=== PATIENT | male | born 1950 | race Caucasian/White ===

== ENCOUNTER 2017-01-20 18:15 | Inpatient (IN) | payer OTHER ==
--- NOTE | ~2017-01-20 | DS ---
Unit #: [id number] #: [id number] Patient: OC GENAO [id number] [address] [place], [place] [address] [id number] I MR#: [id number] NAME: OC GENAO ROOM: 223 Age: 66 Sex: M Admission Date: 01/20/2017 : 1950 Discharge Date: 01/23/2017 Attending Physician: Miles Mckeon M.D. Primary Care Physician: Abdifatah Garibay M.D. DISCHARGE SUMMARY CONSULTANTS None. ADMITTING DIAGNOSIS Acute diverticulitis with abscess. DISCHARGE DIAGNOSES Acute diverticulitis with abscess. BRIEF HOSPITAL COURSE This is a 66-year-old gentleman who was admitted with abdominal pain. He had a CT scan, which showed diverticulitis with two small abscesses. He rapidly improved once started on IV antibiotics and really by hospital day #1 was asymptomatic. He was advanced to a solid food and initial plan was to repeat his CAT scan on hospital day #2; however, when I came by to see him the following morning, his white count had come down close to normal and he was completely asymptomatic and tolerating a regular diet. I made the decision to let the patient go home, which he was in full agreement with. I specifically instructed him if he had any return of symptoms to notify us and that he may need to be readmitted but he seemed to be doing well on oral antibiotics at the time. DISPOSITION Discharge to home. He is to followup with us for a colonoscopy that I will have my office schedule for him in two to three weeks. He was given a script for Levaquin and Flagyl and told to call us specifically he has any return of abdominal pain. Dictated by... Kemar King III, M.D. VCL/london TD: 01/24/2017 06:42 JOB #: [id number] Unit #: [id number] #: [id number] Patient: OC GENAO DISCHARGE SUMMARY Page 1 of 1 X Kemar King III, MD X DISCHARGE SUMMARY
--- NOTE | ~2017-01-20 | CT2 ---
[facility] A Service of [facility] RADIOLOGY TEXT RESULTS PATIENT: OC GENAO LOCATION: [facility] [address]-54 : 51 UNIT #: [id number] AGE: [address]: Miles Mckeon MD SEX: M ORDER DR: [id number] [facility] [address]. [place], [place] [address] [id number] MR#: [id number] Acc #: [id number] NAME: OC GENAO. : 1950 SEX: M STUDY DATE/TIME: 01/20/2017 22:50 UNIT: [facility] ROOM: 28004 STUDY DESCRIPTION: CT Abd and Pelv W Cont Attending Physician: Miles Mckeon M.D. Ordering Physician: Avel Andrade M.D. Primary Care Physician: Abdifatah Garibay M.D. MEDICAL IMAGING REPORT This report is preliminary unless electronic signature is present EXAM CT abdomen and pelvis INDICATIONS Generalized abdominal pain for 1.[address]. [address] of the abdomen and pelvis with p.o. and IV contrast (100 mL Isovue-370 IV contrast). Coronal and sagittal reconstructions were obtained. This CT exam was performed with one or more of the following radiation dose reduction techniques: Automatic exposure control, adjustment of mA and/or kV according to patient size, and iterative reconstruction. COMPARISON CT abdomen and pelvis dated 05/31/2010. FINDINGS ABDOMEN: The solid abdominal organs enhance normally. Gallbladder is surgically absent. No intrahepatic or extrahepatic biliary dilatation. There is a small, 4 mm nonobstructing calculus in the inferior left kidney. There is a small cyst in the mid-right kidney. No small bowel obstruction. The appendix is normal. There is left-sided colonic diverticulosis. There is extensive colonic diverticulitis in the sigmoid colon. There are 2 phlegmonous collections/abscesses. A collection in the sigmoid mesentery measures 4.9 x 2.3 x 3.7 cm. There is a collection in the deep pelvis measuring 2.7 x 3.6 x 3.0 cm. The collection in the deep pelvis abuts the seminal vesicles. There is some inflammatory stranding extending onto the posterior wall of the bladder. No evidence of a direct communication/fistula. No acute osseous abnormalities. There is bilateral L5 pars defects resulting in grade I anterolisthesis of L5 on S1. [facility] A Service of [facility] RADIOLOGY TEXT RESULTS PATIENT: OC GENAO LOCATION: [facility] [address]-76 : 51 UNIT #: [id number] AGE: [address]: Miles Mckeon MD SEX: M ORDER DR: IMPRESSION 1. Acute sigmoid colon diverticulitis. 2. Extensive inflammation into the sigmoid mesentery and deep pelvis, including 2 separate pelvic abscesses. These collections both appear too small for percutaneous drainage. 3. Inflammation along the posterior wall of the bladder, however no discrete fistulous tract is identified. Dictated by... Juanjose Fields M.D. THIS IS AN ELECTRONICALLY VERIFIED REPORT Juanjose Fields M.D. at 01/21/2017 3:24 AM RPC/vera TD: 01/21/2017 02:50 JOB #: [id number] MEDICAL IMAGING REPORT Page 1 of 1 COPY
[~2017-01-20 18:15] MED LIST: ADVAIR 250-501 EAC1 INH; ALBUTEROL 0.5ML INH; ALBUTEROL17 GM INH; ASPIRIN81 M1 PO; CHANTIX1 MG BU; CLARITIN10 MG PO; DIAZEPAM2 MG PO; HYDROCODON-ACE1 EAC7 PO; KEFLEX500 M1 PO; LEVAQUIN PO; LORTAB 10-5001 EACH PO; LORTAB 5-325 M1 EACH PO; LORTAB 7.5-5001 TAB; LORTAB 7.5-5001 TAB PO; ONE DAILY MULTI1 TA3 PO; PREDNISONE10 MG PO; PROAIR HFA8.5 GM INH; SINGULAIR PO; SPIRIVA18 MCG INH; ZOSYN3.375 GM IV
[2017-01-20 18:44] LABS: BASOPHIL# 0.1 X10e3 (0-0.3); BASOPHIL% 0.4 % (0-2.5); EOSINOPHIL# 0.1 X10e3 (0-0.7); EOSINOPHIL% 0.5 % (0.0-7.0); HEMATOCRIT 39.8 % (38.0-50.0); HEMOGLOBIN 12.6 gm/dL (13.0-16.0); LYMPHOCYTE# 1.8 X10e3 (1.0-3.5); LYMPHOCYTE% 10.3 % (17.0-45.0); MEAN CELL VOLUME 78.4 FL (83-96); MEAN CORPUSCULAR HEMOGLOBIN 24.8 PG (28-34); MEAN CORPUSCULAR HGB CONC 31.6 g/dL (30-36); MEAN PLATELET VOLUME 8.8 FL (6.5-11.5); MONOCYTE# 1.5 X10e3 (0-1.0); MONOCYTE% 8.2 % (3.0-12.0); NEUTROPHIL# 14.4 X10e3 (1.5-7.1); NEUTROPHIL% 80.6 % (40-75); PLATELET COUNT 481 X10e3 (140-420); RED BLOOD COUNT 5.08 X10e (3.90-5.60); RED CELL DISTRIBUTION WIDTH 14.4 % (11.0-15.5); WHITE BLOOD COUNT 17.9 X10e3 (4.0-10.5)
[2017-01-20 18:54] LABS: DIFF IND YES
[2017-01-20 19:05] LABS: ALBUMIN SERUM 3.3 g/dL (3.5-5.0); BILIRUBIN, DIRECT 0.2 mg/dL (0.0-0.2); BILIRUBIN,INDIRECT 0.3 mg/dL (0.0-0.9); BILIRUBIN,TOTAL 0.5 mg/dL (0.2-2.0); BUN/CREATININE RATIO 16.25; CALCIUM SERUM 10.2 mg/dL (8.4-10.2); CREATININE SERUM 0.8 mg/dL (0.6-1.4); GLOM FILT RATE Estimated 93.8 mL/min (>60); POTASSIUM 3.8 mmol/L (3.5-5.1); PROTEIN TOTAL SERUM 7.8 g/dL (6.0-8.3)
[2017-01-20 19:11] LABS: MICROCYTOSIS SL; PLATELET ESTIMATE INCREASED (NORMAL)
[2017-01-20 20:00] LABS: URINE SOURCE CLEAN CATCH
[2017-01-20 20:05] LABS: URINE APPEARANCE CLEAR; URINE BLOOD TRACE (NEG); URINE COLOR DK YELLOW; URINE GLUCOSE NEG (NEG); URINE KETONE 1+ (NEG); URINE LEUKOCYTE ESTERASE NEG (NEG); URINE NITRATE NEG (NEG); URINE PROTEIN 1+ (NEG); URINE SPECIFIC GRAVITY 1.027 (1.003-1.035)
[2017-01-20 20:08] LABS: URINE BACTERIA AUWI NEG (NEGATIVE); URINE SQUAMOUS EPITHELIAL CELL NONE SEEN /[HPF]
[2017-01-20 20:12] LABS: CULTURE INDICATED? NO
[2017-01-21] MEDS ORDERED: SPIRIVA18 MCG INH (10:05)
[2017-01-21 12:36] LABS: BASOPHIL# 0.1 X10e3 (0-0.3); BASOPHIL% 0.7 % (0-2.5); DIFF IND NO; EOSINOPHIL% 0.3 % (0.0-7.0); HEMOGLOBIN 12.1 gm/dL (13.0-16.0); LYMPHOCYTE# 1.5 X10e3 (1.0-3.5); LYMPHOCYTE% 8.4 % (17.0-45.0); MEAN CELL VOLUME 79.3 FL (83-96); MEAN CORPUSCULAR HEMOGLOBIN 24.6 PG (28-34); MEAN CORPUSCULAR HGB CONC 31.1 g/dL (30-36); MEAN PLATELET VOLUME 8.6 FL (6.5-11.5); MONOCYTE# 1.7 X10e3 (0-1.0); MONOCYTE% 9.5 % (3.0-12.0); NEUTROPHIL# 14.2 X10e3 (1.5-7.1); NEUTROPHIL% 81.1 % (40-75); PLATELET COUNT 446 X10e3 (140-420); RED BLOOD COUNT 4.91 X10e (3.90-5.60); RED CELL DISTRIBUTION WIDTH 14.3 % (11.0-15.5); WHITE BLOOD COUNT 17.5 X10e3 (4.0-10.5)
[2017-01-21 13:02] LABS: BUN/CREATININE RATIO 12.5; CALCIUM SERUM 10.1 mg/dL (8.4-10.2); CREATININE SERUM 0.8 mg/dL (0.6-1.4); GLOM FILT RATE Estimated 93.8 mL/min (>60); POTASSIUM 3.9 mmol/L (3.5-5.1)
[2017-01-21 13:11] LABS: IRON SERUM 6 ug/dL (45-182); TOTAL IRON BINDING CAPACITY 191 ug/dL (252-460); TRANSFERRIN 137 mg/dL (180-329); TRANSFERRIN SATURATION 3 % (20-50)
[2017-01-22 06:57] LABS: HEMOGLOBIN 11.3 gm/dL (13.0-16.0); MEAN CELL VOLUME 78.5 FL (83-96); MEAN CORPUSCULAR HEMOGLOBIN 24.6 PG (28-34); MEAN CORPUSCULAR HGB CONC 31.4 g/dL (30-36); MEAN PLATELET VOLUME 8.8 FL (6.5-11.5); RED BLOOD COUNT 4.58 X10e (3.90-5.60); RED CELL DISTRIBUTION WIDTH 14.2 % (11.0-15.5); WHITE BLOOD COUNT 12.6 X10e3 (4.0-10.5)
[2017-01-22 07:50] LABS: BUN/CREATININE RATIO 13.33; CALCIUM SERUM 9.8 mg/dL (8.4-10.2); CREATININE SERUM 0.6 mg/dL (0.6-1.4); GLOM FILT RATE Estimated 105.6 mL/min (>60); MAGNESIUM 1.9 mg/dL (1.6-3.0); PHOSPHOROUS 2.9 mg/dL (2.5-4.6)
[2017-01-23] MEDS ORDERED: LEVAQUIN PO (06:18)
[2017-01-23] MEDS ORDERED: FLAGYL PO (06:18)
[2017-01-23 06:25] LABS: HEMATOCRIT 38.7 % (38.0-50.0); HEMOGLOBIN 12.2 gm/dL (13.0-16.0); MEAN CELL VOLUME 78.3 FL (83-96); MEAN CORPUSCULAR HEMOGLOBIN 24.6 PG (28-34); MEAN CORPUSCULAR HGB CONC 31.4 g/dL (30-36); RED BLOOD COUNT 4.95 X10e (3.90-5.60); RED CELL DISTRIBUTION WIDTH 14.2 % (11.0-15.5); WHITE BLOOD COUNT 13.4 X10e3 (4.0-10.5)
[2017-02-05] MEDS ORDERED: IBUPROFEN800 MG PO (12:59)
[2017-02-05] MEDS ORDERED: ADVAIR 250-501 EAC1 INH (13:00)
== END 2017-01-23 07:04 | disposition home or self-care (01) | DRG 392 ==
LOC: CED 18:15 → CEDOF 23:45 → C2A 01-21 00:26 → CED 01-21 00:26 → CEDOF 01-21 00:26 → C2A 01-21 07:30 → CEDOF 01-21 07:30 → C2A 01-21 07:30
PROVIDERS: Specialist; Surgery
DX: K57.20 Diverticulitis of large intestine with perforation and abscess without bleeding (principal); F17.210 Nicotine dependence, cigarettes, uncomplicated; Z90.49 Acquired absence of other specified parts of digestive tract
CPT/HCPCS: 36415; 74177; 80048; 80076; 81003; 82728; 83540; 83550; 83690; 83735; 84100; 85025; 85027; 96361; 96374; 96375; 99285; C9113; J1650; J2270; J2405; J2543; Q9967

== ENCOUNTER → 2017-02-14 | Day surgery (SDC) | payer OTHER ==
[~2017-02-14] MED LIST changes: +FLAGYL PO; +IBUPROFEN800 MG PO
--- NOTE | ~2017-02-14 | OR ---
Unit #: [id number] #: [id number] Patient: OC GENAO [id number] [address] [address] [id number] MR#: [id number] NAME: OC GENAO ROOM: Date of Procedure: 02/14/2017 Admission Date: 02/14/2017 Surgeon: Kemar King III, M.D. : 1950 Attending Physician: Kemar King III, M.D. Primary Care Physician: Abdifatah Garibay M.D. OPERATIVE REPORT PREOPERATIVE DIAGNOSIS Recent history of diverticulitis with abscess. POSTOPERATIVE DIAGNOSES Severe sigmoid diverticulosis and a large polyp at 30 cm and two other polyps, one in the right colon and one in the splenic flexure. PROCEDURE PERFORMED Colonoscopy to cecum with snare polypectomy x3. ANESTHESIA MAC. SPECIMEN Polyps were labeled separately and sent to Pathology. COMPLICATIONS None apparent. INDICATIONS FOR PROCEDURE This is a 66-year-old gentleman, who was recently admitted with a severe episode of diverticulitis with abscess formation. He did respond well to IV antibiotics and was discharged home and completed his outpatient course of those. He is here today for followup colonoscopy. DESCRIPTION OF PROCEDURE After consent was obtained, the patient was brought to the operating room and placed in the supine position SEE ADDENDUM Dictated by... Kemar King III, M.D. VCL/ge TD: 02/14/2017 15:53 JOB #: [id number] Unit #: [id number] #: [id number] Patient: OC GENAO OPERATIVE REPORT Page 1 of 1 X Kemar King III, MD PROCEDURE OPERATIVE NOTE
--- NOTE | ~2017-02-14 | OR ---
Unit #: [id number] #: [id number] Patient: OC GENAO [id number] [address] [place], [place] [address] [id number] O MR#: [id number] NAME: OC GENAO ROOM: Date of Procedure: 02/14/2017 Admission Date: 02/14/2017 Surgeon: Kemar King III, M.D. : 1950 Attending Physician: Kemar King III, M.D. Primary Care Physician: Abdifatah Garibay M.D. OPERATIVE REPORT ADDENDUM DESCRIPTION OF PROCEDURE After consent was obtained, the patient was brought to the endoscopy suite and placed in the left lateral decubitus position. We titrated the above sedation and I performed a rectal exam, I did not feel any masses. The scope was placed within the rectal vault. Air was insufflated. I navigated the scope all the way to the cecum without any difficulty. He had [id number] sigmoid diverticular disease. He had three polyps, two which appeared to be small adenomatous polyps. One was at the right colon and one was at the splenic flexure. These were snared, cauterized, and sent to Pathology. The other polyp was at 30 cm. It was a long inflamed appearing polyp. I did not have malignant features per se other than the size. I took multiple photos of this polyp and I placed a snare around the polyp and guided back down towards healthy tissue; although, there were still somewhat of a stalk. I cauterized this and had good hemostasis. I then was unable to grab or suction the polyp out, so I had to place it within a net. It was approximately almost 2 cm in length. The polyp was sent to Pathology as well. I did retroflex the scope within the rectum, I did not see any other masses. The scope was then carefully withdrawn. I will have the patient call my office early next week for biopsy results and further recommendations are to follow. Dictated by... Kemar King III, M.D. VCL/ge TD: 02/14/2017 15:50 JOB #: [id number] Unit #: [id number] #: [id number] Patient: OC GENAO OPERATIVE REPORT Page 1 of 1 X Kemar King III, MD PROCEDURE OPERATIVE NOTE
== END | disposition home or self-care (01) ==
LOC: COPS 09:48
DX: K57.30 Diverticulosis of large intestine without perforation or abscess without bleeding (principal); D12.3 Benign neoplasm of transverse colon; D12.2 Benign neoplasm of ascending colon; D12.5 Benign neoplasm of sigmoid colon; Z87.19 Personal history of other diseases of the digestive system; J44.9 Chronic obstructive pulmonary disease, unspecified; F17.200 Nicotine dependence, unspecified, uncomplicated
CPT/HCPCS: 88305; J2250